=== PATIENT | female | born 1990 | race Caucasian/White ===

== ENCOUNTER → 2022-11-03 15:44 | Outpatient (CLI) | payer OTHER, SELFPAY ==
--- NOTE | 2022-11-03 16:03 | DI.MRI.S_ITS ---
PROCEDURE: MR LUMBAR SPINE WO CON INDICATIONS: Radiculopathy, lumbar region TECHNIQUE: Noncontrast sagittal T1 spin echo and T2 fast echo, sagittal STIR, and T2 fast spin echo through the lumbar spine. In cases with scoliosis, additional coronal T2 fast spin echo may be performed. COMPARISON: None. FINDINGS: Image quality: Excellent. Alignment and Curvature: There is normal bony alignment. Bone Marrow: Marrow is of normal overall signal. No acute vertebral body compression fractures. Spinal Cord: Conus medullaris terminates at the L1 level. Visualized cord demonstrates normal signal and size. Paraspinous Soft Tissues: No paravertebral masses. T12-L1: Normal appearance. L1-L2: Normal appearance. L2-L3: Normal appearance. L3-L4: Asymmetric posterior disc bulge, ligamentum flavum hypertrophy causing moderate spinal canal narrowing. L4-L5: Asymmetric disc bulge with superimposed central protrusion and ligamentum flavum hypertrophy causing moderate spinal canal narrowing. Mild neural foraminal narrowing present. Probable annular fissure. L5-S1: Broad-based disc bulge. IMPRESSION: Multilevel degenerative disc disease, most prominent at L3-4 and L4-5, with moderate spinal canal narrowing, as detailed above. Dictated by: Alfie Samaniego M.D. on 11/04/2022 at 8:17 Approved by: Alfie Samaniego M.D. on 11/04/2022 at 8:24
== END ==
PROVIDERS: Referring Provider Physical Medicine & Rehabilitation; Visit Provider Physical Medicine & Rehabilitation
DX: M51.16 Intervertebral disc disorders with radiculopathy, lumbar region (principal); M51.17 Intervertebral disc disorders with radiculopathy, lumbosacral region; M48.061 Spinal stenosis, lumbar region without neurogenic claudication
CPT/HCPCS: 72148

== ENCOUNTER 2024-05-12 20:17 | Emergency (ER) | payer OTHER, SELFPAY ==
[2024-05-12 20:31] VITALS: BP 121/69; PULSE 68; RESP 18; TEMP 36.5; O2SAT 100; BMI 25.0
[2024-05-12 23:12] VITALS: PULSE 78; O2SAT 99
[2024-05-12 23:13] VITALS: BP 99/58; PULSE 82; O2SAT 99
[2024-05-12 23:30] VITALS: BP 97/52; PULSE 70; O2SAT 97
[2024-05-12 23:45] LABS: Add Manual Diff / Slide Review NO; Basophils Absolute Auto 0 /uL (0-100); Basophils Percent Auto 0.5 % (0-2); Eosinophils Absolute Auto 200 /uL (0-450); Eosinophils Percent Auto 1.8 % (2-4); Hematocrit 36.5 % (36-46); Hemoglobin 12.1 g/dL (12.0-16.0); Lymphocytes Absolute Auto 2500 /uL (1100-4500); Lymphocytes Percent Auto 29.2 % (25-40); Mean Corpuscular HGB Conc 33.2 % (30-36); Mean Corpuscular Hemoglobin 29.6 PG (26-34); Mean Corpuscular Volume 89.1 fL (80-100); Monocytes Absolute Auto 900 /uL (0-900); Monocytes Percent Auto 9.8 % (3-14); Neutrophils Absolute Auto 5100 /uL (1500-7000); Neutrophils Percent Auto 58.7 % (50-75); Platelet Count 245 X10^3/uL (150-400); Red Blood Cell Count 4.09 X10^6/uL (4.0-5.2); Red Cell Distribution Width 12.8 % (11.6-14.8); White Blood Cell Count 8.7 X10^3/uL (4.5-11.0)
[2024-05-12 23:53] LABS: Alanine Aminotransferase 22 IU/L (<35); Albumin 4.1 g/dL (3.5-5.0); Albumin Globulin Ratio 1.8 (1.0-2.8); Alkaline Phosphatase 52 U/L (38-126); Aspartate Aminotransferase 30 IU/L (14-36); BUN Creatinine Ratio 26.6 (6-22); Bilirubin Total 0.3 mg/dL (0.2-1.3); Blood Urea Nitrogen 21 mg/dL (7-17); Carbon Dioxide 26 mmol/L (22-32); Chloride 107 mmol/L (98-107); Estimated Glomerular Filt Rate > 60 mL/min (>60); Globulin 2.3 g/dL (1.7-4.1); Glucose 110 mg/dL (70-100); HEMOLYSIS < 15 (0-50); Potassium 3.9 mmol/L (3.4-5.1); Sodium 138 mmol/L (137-145); Total Protein 6.4 g/dL (6.3-8.2)
[2024-05-13] VITALS (8 sets, daily range): BP systolic 107–172; BP diastolic 53–99; PULSE 60–72; O2SAT 96–99
[2024-05-13] MEDS: ONDANSETRON 4 MG/2 ML INJ IV (00:16)
--- NOTE | 2024-05-13 00:23 | ED_ITS ---
HPI - Female Genitourinary General Chief complaint: Urogenital-Female Stated complaint: back pain and cramping Time Seen by Provider: 05/12/24 23:15 Source: patient Mode of arrival: Ambulatory History of Present Illness HPI Narrative: 34-year-old female with history of chronic back pain presents by private vehicle from home for low back pain. Patient states that she has a history of ovarian cyst and has been dealing with pain from her cyst. She has been taking her Celebrex and Tylenol without relief. She states that while she was bending over she threw something out in her back. She has not been able to manage the pain at home so she came to the ER. Patient states several times that she is not here for the cystic pain that she is experiencing, but rather for pain control with her lower back. Denies bowel or bladder incontinence, denies saddle anesthesia, is able to ambulate without any lower extremity weakness. Related Data Home Medications Medication Instructions Recorded Confirmed dextroamphetamine-amphetamine ER 10 mg PO DAILY 05/12/24 05/12/24 10 mg 24hr capsule,extend release (Adderall XR) gabapentin 300 mg capsule 300 mg PO 4XW 05/12/24 05/12/24 Previous Rx's Medication Instructions Recorded methocarbamol 500 mg tablet 500 mg PO TID #30 tabs 05/13/24 methylprednisolone 4 mg tablets in See Rx Instructions PO .COMPLEX 05/13/24 a dose pack (Medrol (Cosme)) #21 ea Allergies Allergy/AdvReac Type Severity Reaction Status Date / Time No Known Drug Allergies Allergy Verified 05/12/24 20:29 Exam Initial Vital Signs Initial Vital Signs: Vital Signs Temperature 97.7 F 05/12/24 20:31 Pulse Rate 68 05/12/24 20:31 Respiratory Rate 18 05/12/24 20:31 Blood Pressure 121/69 05/12/24 20:31 Pulse Oximetry 100 05/12/24 20:31 Oxygen Delivery Method Room Air 05/12/24 20:31 Const: Awake, alert, no acute distress, nontoxic appearing MSK: Atraumatic, full range of motion, pulses equal Skin: Warm, Dry, intact, no rashes Neuro: AO x3, CN II-XII grossly intact, moves all extremities Course Orders Ordered: ED Orders 05/12/24 23:35 Complete Blood Count AUTO DIFF Stat Comprehensive Metabolic Panel Stat Discontinued Medications Dexamethasone (Dexamethasone 10 Mg/Ml Vial) 10 mg IV NOW ONE Stop: 05/13/24 00:24 Last Admin: 05/13/24 00:38 Dose: 10 mg Documented By: Diazepam (Diazepam 10 Mg/2 Ml Syringe) 3 mg IV NOW ONE Stop: 05/13/24 00:24 Last Admin: 05/13/24 00:41 Dose: 3 mg Documented By: Acetaminophen (Ofirmev) 1,000 mg in 100 mls @ 400 mls/hr IV NOW ONE Stop: 05/13/24 00:37 Last Admin: 05/13/24 00:55 Dose: Not Given Documented By: Ketorolac Tromethamine (Ketorolac 30 Mg/Ml Vial) 15 mg IV NOW ONE Stop: 05/13/24 00:15 Last Admin: 05/13/24 00:55 Dose: Not Given Documented By: Lidocaine (Lidocaine 5% Patch) 1 each TOP NOW ONE Stop: 05/13/24 00:24 Last Admin: 05/13/24 00:55 Dose: 1 each Documented By: Morphine Sulfate (Morphine 4 Mg/Ml Inj) 4 mg IV NOW ONE Stop: 05/13/24 01:43 Last Admin: 05/13/24 01:47 Dose: 4 mg Documented By: Ondansetron HCl (Ondansetron 4 Mg/2 Ml Inj) 4 mg IV NOW PRN PRN Reason: Nausea And Vomiting Last Admin: 05/13/24 00:16 Dose: 4 mg Documented By: Ondansetron HCl (Ondansetron 4 Mg Odt) 4 mg PO NOW PRN PRN Reason: Nausea And Vomiting Vital Signs Vital signs: Vital Signs - 8 hr 05/12/24 20:31 05/12/24 23:12 05/12/24 23:13 Temperature 97.7 F Pulse Rate 68 78 Respiratory Rate 18 Blood Pressure 121/69 99/58 L Pulse Oximetry 100 99 Oxygen Delivery Method Room Air 05/12/24 23:13 05/12/24 23:30 05/12/24 23:30 Temperature Pulse Rate 82 70 Respiratory Rate Blood Pressure 97/52 L Pulse Oximetry 99 97 Oxygen Delivery Method Room Air 05/13/24 00:00 05/13/24 00:30 05/13/24 00:32 Temperature Pulse Rate 72 63 Respiratory Rate Blood Pressure 172/99 H Pulse Oximetry 97 99 Oxygen Delivery Method 05/13/24 00:32 05/13/24 01:00 05/13/24 01:30 Temperature Pulse Rate 72 64 61 Respiratory Rate Blood Pressure Pulse Oximetry 99 99 98 Oxygen Delivery Method 05/13/24 01:32 05/13/24 01:32 05/13/24 02:00 Temperature Pulse Rate 68 60 Respiratory Rate Blood Pressure 115/53 L Pulse Oximetry 98 97 Oxygen Delivery Method 05/13/24 02:01 05/13/24 02:01 Temperature Pulse Rate 70 Respiratory Rate Blood Pressure 107/70 Pulse Oximetry 96 Oxygen Delivery Method Room Air MDM - Female Genitourinary Lab Data 05/12/24 23:35 05/12/24 23:35 Labs: Lab Results 05/12/24 Range/Units 23:35 WBC 8.7 (4.5-11.0) X10^3/uL RBC 4.09 (4.0-5.2) X10^6/uL Hgb 12.1 (12.0-16.0) g/dL Hct 36.5 (36-46) % MCV 89.1 (80-100) fL MCH 29.6 (26-34) PG MCHC 33.2 (30-36) % RDW 12.8 (11.6-14.8) % Plt Count 245 (150-400) X10^3/uL Neut % (Auto) 58.7 (50-75) % Lymph % (Auto) 29.2 (25-40) % [place] % (Auto) 9.8 (3-14) % Eos % (Auto) 1.8 L (2-4) % Baso % (Auto) 0.5 (0-2) % Neut # (Auto) 5100 (2251-6487) /uL Lymph # (Auto) 2500 (2640-2562) /uL [place] # (Auto) 900 (0-900) /uL Eos # (Auto) 200 (0-450) /uL Baso # (Auto) 0 (0-100) /uL Sodium 138 (137-145) mmol/L Potassium 3.9 (3.4-5.1) mmol/L Chloride 107 (98-107) mmol/L Carbon Dioxide 26 (22-32) mmol/L BUN 21 H (7-17) mg/dL Creatinine 0.79 (0.52-1.04) mg/dL Estimated GFR > 60 (>60) mL/min BUN/Creatinine Ratio 26.6 H (6-22) Glucose 110 H (70-100) mg/dL Calcium 9.0 (8.4-10.2) mg/dL Total Bilirubin 0.3 (0.2-1.3) mg/dL AST 30 (14-36) IU/L ALT 22 (<35) IU/L Alkaline Phosphatase 52 (38-126) U/L Total Protein 6.4 (6.3-8.2) g/dL Albumin 4.1 (3.5-5.0) g/dL Globulin 2.3 (1.7-4.1) g/dL Albumin/Globulin Ratio 1.8 (1.0-2.8) MDM Narrative Medical decision making narrative: Atraumatic worsening of chronic lower back pain after bending over. No signs or symptoms of cauda equina. No indication for advanced imaging at this time. Patient had Toradol and IV Tylenol ordered, however she told nursing staff that she had doubled her Celebrex prior to coming in and took Tylenol while waiting for a bed in the waiting room. She was given lidocaine patch and Valium without relief. She was given a single dose of morphine with improvement in pain. Patient requested pain medications to go home telling nursing staff that she normally gets hydrocodone. I advised patient to continue her current regimen and will add steroids and muscle relaxers. Patient advised to follow with pcp or pain management doctor for additional pain medications if needed. Discharge Plan Departure Patient Disposition: Home Clinical Impression: Back pain Instructions: DI for Low Back Pain Activity Restrictions/Additional Instructions: Your laboratory work today is normal. Follow up with your pain management doctors if you continued to have back pain. Muscle relaxers and a steroid taper has been sent to your pharmacy. Prescriptions: New methylprednisolone [Medrol (Cosme)] 4 mg tablets,dose pack See Rx Instructions .ROUTE .COMPLEX Qty: 21 0RF Rx Instructions: orally per package directions methocarbamol 500 mg tablet 500 mg PO TID Qty: 30 0RF No Action gabapentin 300 mg Capsule 300 mg PO 4XW dextroamphetamine-amphetamine [Adderall XR] 10 mg Capsule,Extended Release 24hr 10 mg PO DAILY Referrals: Alvin Godwin ARNP [Primary Care Provider] - Stand Alone Forms: Patient Portal/API/Survey
[2024-05-13] MEDS: DEXAMETHASONE 10 MG/ML VIAL IV (00:38)
[2024-05-13] MEDS: diazePAM 10 MG/2 ML SYRINGE 3 MG IV (00:41)
[2024-05-13] MEDS: LIDOCAINE 5% PATCH 1 EACH TOP (00:55)
[2024-05-13] MEDS: MORPHINE 4 MG/ML INJ IV (01:47)
== END 2024-05-13 03:00 | disposition home or self-care (01) ==
PROVIDERS: Emergency Provider Emergency Medicine; PCP Nurse Practitioner Family
DX: M54.50 Low back pain, unspecified (principal)
CPT/HCPCS: 36415; 80053; 85025; 96374; 96375; 99284; J1100; J2270; J2405; J3360

== ENCOUNTER 2025-02-22 17:40 | Emergency (ER) | payer OTHER, SELFPAY ==
[2025-02-22] VITALS (8 sets, daily range): BP systolic 110–123; BP diastolic 74–82; PULSE 56–61; RESP 14; TEMP 36.7; O2SAT 97–100; BMI 24.5
--- NOTE | 2025-02-22 18:23 | ED.BACK ---
HPI - Back Pain/Injury General Chief Complaint: Back Pain/Injury Stated Complaint: Back spasm,coming from chiropractor Time Seen by Provider: 02/22/25 17:40 Source: EMS History of Present Illness HPI Narrative: 35-year-old female patient with a history of PTSD, ADHD and chronic back problems who complains of exacerbation of her chronic back pain while recently moving. She has been transporting boxes. She has spasm and pain in the lumbar area on both sides. No blunt trauma or fall. Denies weakness, incontinence or numbness. Related Data Home Medications ?Medication ?Instructions ?Recorded ?Confirmed dextroamphetamine-amphetamine ER 10 mg PO DAILY 05/12/24 05/12/24 10 mg 24hr capsule,extend release (Adderall XR) gabapentin 300 mg capsule 300 mg PO 4XW 05/12/24 05/12/24 Previous Rx's ?Medication ?Instructions ?Recorded methocarbamol 500 mg tablet 500 mg PO TID #30 tabs 05/13/24 methylprednisolone 4 mg tablets in See Rx Instructions PO .COMPLEX 05/13/24 a dose pack (Medrol (Cosme)) #21 ea cyclobenzaprine 10 mg tablet 10 mg PO TID PRN muscle spasm #20 02/22/25 tabs Allergies Allergy/AdvReac Type Severity Reaction Status Date / Time No Known Drug Allergies Allergy Verified 02/22/25 17:47 Review of Systems Review of Systems ROS Unobtainable: All systems reviewed & are unremarkable except as noted in HPI and below Musculoskeletal Musculoskeletal: Reports as per HPI Patient History Social History Smoking Status: Unknown if ever smoked Smoking Status: Unknown if ever smoked Exam Narrative Exam Narrative: General: Alert and conversant. Moderate distress. Appears well nourished and well hydrated Lungs: Clear to auscultation with good air movement. No wheezing, rales or rhonchi. No respiratory distress Cardiac: Regular rate and rhythm with no appreciable murmur or gallop Abdomen: Soft, nontender with no distention or masses. Normal bowel sounds. No rebound or guarding Musculoskeletal: Tenderness and spasm of the bilateral paralumbar musculature with no midline tenderness. Straight leg raising produces lumbar muscle pain. Otherwise Exam of the extremities, axial spine and ribcage reveals no deformity, bony tenderness or swelling. Range of motion intact Neuro: Alert and oriented. Cranial nerves, motor, sensory and cerebellar all grossly intact. No focal deficit Skin: Warm and normal color. No rashes Psychological: Normal affect and interaction. No evidence of delusion or psychosis. Normal mood. Initial Vital Signs Initial Vital Signs: Vital Signs Temperature 98.0 F 02/22/25 17:47 Pulse Rate 61 02/22/25 17:47 Respiratory Rate 14 02/22/25 17:47 Blood Pressure 123/82 02/22/25 17:47 Pulse Oximetry 98 02/22/25 17:47 Oxygen Delivery Method Room Air 02/22/25 17:47 Course Course Course Narrative: 21:10 Partial relief with ketorolac and diazepam. Significant relief with hydromorphone. Patient is now up and moving better. Orders Ordered: Discontinued Medications Diazepam (Diazepam 10 Mg/2 Ml Syringe) 5 mg IV NOW ONE Stop: 02/22/25 18:25 Last Admin: 02/22/25 18:44 Dose: 5 mg Documented By: PEPPER Hydromorphone HCl (Hydromorphone 1 Mg/Ml Syringe) 1 mg IV NOW ONE Stop: 02/22/25 19:50 Last Admin: 02/22/25 19:58 Dose: Not Given Documented By: KALEN Hydromorphone HCl (Hydromorphone Hcl 0.5 Mg/0.5 Ml Syringe) 1 mg IV NOW ONE Stop: 02/22/25 19:55 Last Admin: 02/22/25 19:57 Dose: 1 mg Documented By: KALEN Ketorolac Tromethamine (Ketorolac 30 Mg/Ml Vial) 30 mg IV NOW ONE Stop: 02/22/25 18:25 Last Admin: 02/22/25 18:44 Dose: 30 mg Documented By: PEPPER Ondansetron HCl (Ondansetron 4 Mg/2 Ml Inj) 4 mg IV NOW ONE Stop: 02/22/25 20:03 Last Admin: 02/22/25 20:05 Dose: 4 mg Documented By: KALEN Vital Signs Vital signs: Vital Signs - 8 hr 02/22/25 17:47 02/22/25 18:48 02/22/25 18:49 Temperature 98.0 F Pulse Rate 61 60 60 Respiratory Rate 14 Blood Pressure 123/82 Pulse Oximetry 98 97 97 Oxygen Delivery Method Room Air 02/22/25 18:49 02/22/25 19:00 02/22/25 19:30 Temperature Pulse Rate 57 L 56 L Respiratory Rate Blood Pressure 110/74 Pulse Oximetry 97 99 Oxygen Delivery Method 02/22/25 20:00 02/22/25 20:30 02/22/25 21:00 Temperature Pulse Rate 60 56 L 56 L Respiratory Rate Blood Pressure Pulse Oximetry 99 98 100 Oxygen Delivery Method MDM - Back Pain/Injury Differential Diagnosis Differential diagnosis: Likely lumbar radiculopathy, sciatica, strain of lumbar region and pyelonephritis Condition is:: Improved Chronic Condition is having:: Moderate exacerbation Condition is at treatment goal?: Yes Lab Data Labs: Point of Care Testing Test Results Negative Urine Dip Bedside Urine Glucose Negative Bedside Urine Bilirubin - Negative Bedside Urine Ketone - Negative Urine Specific [place] 1.010 Bedside Urine Occult Blood - Negative Bedside Urine pH 6.0 Bedside Urine Protein - Negative Bedside Urine Urobilinogen - Negative Bedside Urine Nitrite - Negative Bedside Urine Leukocytes - Negative Esterase MDM Narrative Medical decision making narrative: Partial relief with ketorolac and diazepam. Significant relief with hydromorphone. Patient is now up and moving better. Patient has had lumbar strain with spasm which is recurrent problem for her. Now doing better. I do not believe she needs any imaging in the ER. This is a straight forward soft tissue/muscular problem with no neuro deficit or bony tenderness. She is instructed to use cold or warm packs and her current [id number] and prescription medicine. Follow up closely with her doctor. May need physical therapy. Return to the ER if worse Discharge Plan Departure Patient Disposition: Home Clinical Impression: Strain of lumbar region Instructions: DI for Back Spasm, DI for Back Strain or Sprain Activity Restrictions/Additional Instructions: Plan: Cold or warm packs. Continue prescription and [id number] medicine. Follow up closely with your doctor for further management. May need physical therapy. Prescriptions: New cyclobenzaprine 10 mg tablet 10 mg PO TID PRN (Reason: muscle spasm) Qty: 20 0RF No Action gabapentin 300 mg Capsule 300 mg PO 4XW dextroamphetamine-amphetamine [Adderall XR] 10 mg Capsule,Extended Release 24hr 10 mg PO DAILY methylprednisolone [Medrol (Cosme)] 4 mg tablets,dose pack See Rx Instructions .ROUTE .COMPLEX Qty: 21 0RF Rx Instructions: orally per package directions methocarbamol 500 mg tablet 500 mg PO TID Qty: 30 0RF Referrals: Alvin Godwin ARNP [Primary Care Provider, Medical] Stand Alone Forms: Patient Portal/API
[2025-02-22] MEDS: KETOROLAC 30 MG/ML VIAL IV (18:44)
[2025-02-22] MEDS: ONDANSETRON 4 MG/2 ML INJ IV (20:05)
== END 2025-02-22 21:29 | disposition home or self-care (01) ==
PROVIDERS: Emergency Provider Emergency Medicine; PCP Nurse Practitioner Family
DX: S39.012A Strain of muscle, fascia and tendon of lower back, initial encounter (principal); X50.9XXA Other and unspecified overexertion or strenuous movements or postures, initial encounter
CPT/HCPCS: 81003; 81025; 96374; 96375; 99283; 99284; J1171; J1885; J2405; J3360